=== PATIENT | female | born 1975 | race Caucasian/White ===

== ENCOUNTER 2020-02-02 20:40 | Emergency (ER) | payer SELFPAY ==
--- NOTE | ~2020-02-02 | CT_ITS ---
EXAMINATION: CT abdomen pelvis wo con DATE: 02/02/2020 21:35 INDICATION: Left lower quadrant abdominal pain TECHNIQUE: Computed tomography (CT) of the abdomen and pelvis was performed without intravenous contr ast. The dose-length product was 561.78 mGy-cm. Automated exposure control and iterative reconstructi on technique were employed. COMPARISON: None. FINDINGS: Lung bases are unremarkable. Heart size normal. No significant pleural or pericardial effus ion. Calcified granuloma in the spleen. There are gallstones. The liver, pancreas, adrenal glands and kidneys are unremarkable. Nonobstructive bowel gas pattern. Normal appendix. No evidence for diverti culitis. Mild atherosclerosis. No lymphadenopathy. No acute osseous abnormality. Mild-moderate lumbar spondylosis. IMPRESSION: 1. No acute abdominal abnormality. 2: Cholelithiasis. Reviewed, dictated and finalized at location A.
[2020-02-02 20:46] VITALS: BP 173/88; PULSE 79; RESP 17; TEMP 37.2; O2SAT 92
--- NOTE | 2020-02-02 21:01 | ED.ABDPAIN ---
HPI - Abdominal Pain General Chief Complaint: Abdominal Pain Stated Complaint: abd pain Time Seen by Provider: 02/02/20 21:01 Source: patient Mode of arrival: ambulatory Limitations: no limitations History of Present Illness HPI narrative: Pt presents to the ED with a three day history of worsening LLQ abd pain. Patient with 3-day history of worsening pain. Pain is intermittently sharp, cramping in nature. Patient also reports pain in the middle of her abdomen. She denies flank pain. No fever, chills, nausea, vomiting, chest pain or shortness of breath. No diarrhea. Patient states she was having some urinary retention last week but states that now improved. She denies dysuria or hematuria. Patient has a history of 4 sections in the past, denies other abdominal surgeries. Related Data Home Medications Medication Instructions Recorded Confirmed alprazolam 02/02/20 Allergies Allergy/AdvReac Type Severity Reaction Status Date / Time Penicillins Allergy Mild Hives Verified 02/02/20 20:46 Review of Systems Review of Systems: Narrative: CONSTITUTIONAL: Denies fever, chills, or sweats. CARDIOVASCULAR: Denies chest pain, palpitations, or edema. RESPIRATORY: Denies cough or dyspnea. GASTROINTESTINAL: Reports abdominal pain, denies nausea, vomiting or diarrhea GENITOURINARY: Denies dysuria or hematuria. SKIN: Denies rash or itching. MUSCULOSKELETAL: Denies back pain, joint pain, or myalgia. NEUROLOGIC: Denies headache, numbness, or weakness. [facility] Past Medical History Medical History (Updated 02/02/20 @ 22:52 by Lisa Bhandari MD) Anxiety COPD (chronic obstructive pulmonary disease) Surgical History Surgical History (Updated 02/02/20 @ 21:07 by Lisa Bhandari MD) H/O section Social History Social History (Updated 02/02/20 @ 21:08 by Lisa Bhandari MD) Smoking status: Current every day smoker Tobacco type: cigarettes Alcohol intake: never Substance use: never Living arrangements: with family Gender identity (if verbalized by the patient): Female Exam Narrative: Exam Narrative: GENERAL: Awake, alert, conversant HEAD: Normocephalic, atraumatic. EYES: PERRLA and EOMI. ENT: Nares clear, no rhinorrhea or epistaxis. Mucous membranes moist. NECK: Supple. CHEST: No respiratory distress, breathing even and non labored HEART: Regular rate, sinus rhythm ABDOMEN:Non distended, mild left lower quadrant tenderness, mild periumbilical tenderness, no suprapubic tenderness, no flank tenderness EXTREMITIES: Normal range of motion. No edema. SKIN: Warm, dry, no rash. NEURO:No focal deficits. Alert and oriented x3 Course Vital Signs Vital signs: Vital Signs Temperature 37.2 C 02/02/20 20:46 Pulse Rate 79 02/02/20 20:46 Respiratory Rate 17 02/02/20 20:46 Blood Pressure 173/88 H 02/02/20 20:46 Pulse Oximetry 92 02/02/20 20:46 Temperature 37.2 C 02/02/20 20:46 Pulse Rate 79 02/02/20 20:46 Respiratory Rate 17 02/02/20 20:46 Blood Pressure 173/88 H 02/02/20 20:46 Pulse Oximetry 92 02/02/20 20:46 MDM - Abdominal Pain MDM Narrative Medical decision making narrative: Patient's abdomen is soft without significant pain or signs of surgical abdomen on serial exams. Lab and imaging evaluations are reviewed and patient is felt to be a reasonable candidate for outpatient management. Patient has cholelithiasis without laboratory findings that are consistent for acute cholecystitis. Pt hemoconcentrated. She was given IV fluids, antiemetic and pain medicatoin with good improvement in symptoms. Furthermore, CT imaging does not show any evidence of acute cholecystitis. No UTI. Patient was instructed as to limitations of imaging and lab evaluation and encouraged to return to the emergency department her primary physician for repeat exam in 12 hours if continued or worsening pain. Differential Diagnosis Differential diagnosis: Likely abdominal pain, calcul
[2020-02-02 21:29] LABS: Basophils Percent Auto 0.3 % (0.2-1.2); Eosinophils Absolute Auto 0.2 K/mm3 (0-0.3); Eosinophils Percent Auto 1.5 % (0-4.4); Hematocrit 53.1 % (37.0-47.0); Hemoglobin 18.3 g/dL (12.0-15.0); Immature Granulocyte Absolute 0.04 K/mm3 (0.00-0.031); Immature Granulocyte Percent A 0.4 % (0-0.5); Lymphocytes Absolute Auto 3.94 K/mm3 (0.9-3.2); Lymphocytes Percent Auto 40.6 % (18.3-44.2); Mean Corpuscular HGB Conc 34.5 g/dl (32-36); Mean Corpuscular Hemoglobin 32.9 pg (26-34); Mean Corpuscular Volume 95.5 fl (80-100); Mean Platelet Volume 9.6 fl (7.4-10.4); Monocytes Absolute Auto 0.9 K/mm3 (0.1-0.6); Monocytes Percent Auto 8.8 % (2.6-8.5); Neutrophils Absolute Auto 4.7 K/mm3 (1.3-6.7); Neutrophils Percent Auto 48.4 % (45.5-73.1); Platelet Count Result 200 k/mm3 (150-375); Red Blood Count 5.56 M/mm3 (4.2-5.4); White Blood Count 9.7 K/mm3 (4.5-10.0)
[2020-02-02 21:33] LABS: Add Urine Microscopic? NO; Appearance Urine Clear (Clear); Bilirubin Urine Negative (Negative); Blood Urine Negative (Negative); Color Urine Yellow (Yellow); Glucose Urine UA Negative (Negative); Ketones Urine Negative (Negative); Leukocyte Esterase Ur Negative LEU/UL (Negative); Nitrate Urine Negative (Negative); Protein Urine Negative (Negative); Specific Grav Ur 1.011 (1.001-1.035); Urobilinogen Urine Negative mg/dL (<2.0)
[2020-02-02 22:41] LABS: Alanine Aminotransferase 18 U/L (4-35); Albumin Level 4.4 g/dL (3.5-5.1); Alkaline Phosphatase 64 U/L (38-126); Anion Gap 9.8 mmol/L (7-16); Aspartate Amino Transferase 24 U/L (14-36); Bilirubin,Total 0.6 mg/dL (0.2-1.3); Blood Urea Nitrogen 10 mg/dL (7-17); Calcium 9.2 mg/dL (8.4-10.2); Carbon Dioxide 30 mmol/L (22-30); Chloride 104 mmol/L (98-107); Estimated CRCL calculation 117 ml/min; Estimated Glomerular Filt Rate > 60; Glucose 97 mg/dL (65-105); Lipase 54 U/L (23-300); Potassium 3.8 mmol/L (3.4-5.0); Sodium 140 mmol/L (137-145)
[2020-02-02 22:53] VITALS: BP 121/77; PULSE 79; RESP 22; O2SAT 94
--- NOTE | 2020-02-02 22:56 | PC.NURSE ---
pt refused medication orders
== END 2020-02-02 23:00 | disposition home or self-care (01) ==
PROVIDERS: General Practice; Emergency Provider Emergency Medicine
DX: R10.32 Left lower quadrant pain (principal); F41.9 Anxiety disorder, unspecified; J44.9 Chronic obstructive pulmonary disease, unspecified; K80.20 Calculus of gallbladder without cholecystitis without obstruction; F17.210 Nicotine dependence, cigarettes, uncomplicated
CPT/HCPCS: 36415; 74176; 80053; 81003; 81025; 83690; 85025; 99284

== ENCOUNTER 2021-04-01 15:10 | Emergency (ER) | payer SELFPAY ==
[2021-04-01 15:28] VITALS: BP 117/78; PULSE 84; RESP 18; TEMP 36.6; O2SAT 97
--- NOTE | 2021-04-01 16:31 | ED.SKABFB ---
HPI - Skin/Abscess/Foreign Bdy General Chief complaint: Skin/Abscess/Foreign Body Stated complaint: Ijury on left arm Source: patient and RN notes reviewed Limitations: no limitations History of Present Illness HPI narrative: The patient, previously mostly healthy, presents with left arm skin eruption. Patient states she has about 5-day, week long history of pink, slightly itchy skin eruption that she thinks might be a bug bite . No fever, abscess/induration, streaking, prior/other rashes; there has been some discharge that she elicited/squeezed out.. Related Data Home Medications Medication Instructions Recorded Confirmed alprazolam 02/02/20 Allergies Allergy/AdvReac Type Severity Reaction Status Date / Time Penicillins Allergy Mild Hives Verified 02/02/20 20:46 Sulfa (Sulfonamide Allergy Other Verified 04/01/21 15:23 Antibiotics) Review of Systems Review of Systems: General/Constitutional: No weight loss,fever Gastrointestinal: No Vomiting, Bleeding-rectal Skin: No Lumps, eruption Neurologic: No Focal Weakness,Sz Hematologic: Denies: Petechiae/Purpura PMFSH Past Medical History Medical History (Updated 04/01/21 @ 16:32 by Sidney Hi MD) Anxiety COPD (chronic obstructive pulmonary disease) Surgical History Surgical History (Updated 02/02/20 @ 21:07 by Lisa Bhandari MD) H/O section Social History Social History (Updated 02/02/20 @ 21:08 by Lisa Bhandari MD) Smoking status: Current every day smoker Tobacco type: cigarettes Alcohol intake: never Substance use: never Gender identity (if verbalized by the patient): Female Comments At time of signature, agree with nursing past medical, surgical history. There is no relevant family history pertinent to the presenting complaint Exam Narrative: General Appearance: Well nourished Normocephalic Mouth/Throat: Normal appearing, Supple Respiratory: Airway patent, No respiratory distress Musculoskeletal: Moves all extremities, Non tender; Warm, Dry; smaller, quarter size skin eruption with central punctum on the left forearm Neurological: A&O x3, Normal affect Course Vital Signs Vital signs: Vital Signs Temperature 97.8 F 04/01/21 15:28 Pulse Rate 84 04/01/21 15:28 Respiratory Rate 18 04/01/21 15:28 Blood Pressure 117/78 04/01/21 15:28 Pulse Oximetry 97 04/01/21 15:28 Temperature 97.8 F 04/01/21 15:28 Pulse Rate 84 04/01/21 15:28 Respiratory Rate 18 04/01/21 15:28 Blood Pressure 117/78 04/01/21 15:28 Pulse Oximetry 97 04/01/21 15:28 Discharge Plan Discharge Clinical Impression: Folliculitis Patient Disposition: Home, Self-Care Condition: Improved Instructions: Folliculitis (ED) Additional Instructions: Stop clindamycin if diarrhea occurs; take clindamycin with food, probiotic and/or antacid Keep photo log of area Prescriptions: New clindamycin HCl 300 mg capsule 300 mg PO TID Qty: 15 RF: 0 mupirocin 2 % ointment 1 applic TOPICAL TID Qty: 30 RF: 0 No Action alprazolam 0.25 mg tablet RF: 0 ondansetron HCl [Zofran] 4 mg tablet 4 mg PO Q8H Qty: 14 RF: 0 dicyclomine 10 mg capsule 10 mg PO BID 5 Days Qty: 10 RF: 0 Follow-up/Referrals: PHYSICIAN NOT ON STAFF,NONSTAFF [Primary Care Provider] - Jason Morgan MD [Physician] -
== END 2021-04-01 16:45 | disposition home or self-care (01) ==
PROVIDERS: Emergency Provider Emergency Medicine
DX: L73.9 Follicular disorder, unspecified (principal); J44.9 Chronic obstructive pulmonary disease, unspecified
CPT/HCPCS: 99213; G0463

== ENCOUNTER → 2022-08-25 16:20 | Outpatient (CLI) | payer MEDICAID, SELFPAY ==
--- NOTE | ~2022-08-25 | XR_ITS ---
EXAMINATION: XR chest 2V DATE: 08/25/2022 16:34 INDICATION: Cough. TECHNIQUE: Frontal and lateral views of the chest were obtained. COMPARISON: Chest 2 views 12/04/2007, CT abdomen and pelvis 02/02/2020 FINDINGS: The lungs are hyperexpanded, consistent with emphysema. There is mild atelectasis at right lung base. No pleural effusion or pneumothorax. The heart size is normal. Main pulmonary artery is en larged, consistent with pulmonary arterial hypertension. IMPRESSION: 1. Emphysema. 2. Mild atelectasis at right lung base. Reviewed, dictated and finalized at location A. WRITER
== END ==
PROVIDERS: PCP Family Medicine; Visit Provider Family Medicine
DX: R05.9 Cough, unspecified (principal); J43.9 Emphysema, unspecified; J98.11 Atelectasis
CPT/HCPCS: 71046

== ENCOUNTER 2023-04-01 19:34 | Emergency (ER) | payer OTHER, SELFPAY ==
[2023-04-01 19:46] VITALS: BP 165/88; PULSE 124; RESP 30; TEMP 37.2; O2SAT 75
== END 2023-04-01 19:46 | disposition left against medical advice (07) ==
LOC: EXPCOLL 19:36
PROVIDERS: Emergency Provider Nurse Practitioner Family; PCP Internal Medicine
DX: R05.9 Cough, unspecified (principal)
CPT/HCPCS: 99199

== ENCOUNTER 2023-06-25 18:07 | Emergency (ER) | payer OTHER, SELFPAY ==
[2023-06-25 18:11] VITALS: BP 161/87; PULSE 93; RESP 16; TEMP 37; O2SAT 93
--- NOTE | 2023-06-25 18:39 | ED.FEMALEGU ---
HPI - Female Genitourinary General Chief complaint: Urogenital-Female Stated complaint: urinary issue Time Seen by Provider: 06/25/23 18:39 Source: patient, RN notes reviewed and old records reviewed Mode of arrival: ambulatory Limitations: no limitations History of Present Illness HPI Narrative: 48-year-old female presents to the [facility] with complaints of trouble emptying bladder, frequency, urgency, low back pain that started yesterday. Denies abdominal pain, upper back pain, fevers History of UTIs, states it feels the same Onset (ago): day(s) (1) Related Data Home Medications Medication Instructions Recorded Confirmed ergocalciferol (vitamin D2) 1,250 1,250 mcg PO DAILY 04/01/23 06/25/23 mcg (50,000 unit) capsule Allergies Allergy/AdvReac Type Severity Reaction Status Date / Time Penicillins Allergy Mild Hives Verified 06/25/23 18:15 Sulfa (Sulfonamide Allergy Unknown Other Verified 06/25/23 18:15 Antibiotics) Quinolones AdvReac Mild Hives Verified 06/25/23 18:15 Review of Systems Review of Systems: All systems reviewed & are unremarkable except as noted in HPI and below Constitutional: Constitutional: Reports no additional constitutional complaints Eyes: Eyes: Reports no additional eye complaints ENT: Reports system reviewed and no additional complaints, except as documented Cardiovascular: Cardiovascular: Reports no additional cardiovascular complaints, Denies chest pain and Denies dyspnea Respiratory: Respiratory: Reports no additional respiratory complaints, Denies chest congestion, Denies cough and Denies dyspnea Gastrointestinal: Gastrointestinal: Reports no additional gastrointestinal complaints, Denies abdominal pain, Denies nausea and Denies vomiting Genitourinary: Genitourinary: Reports as per HPI Musculoskeletal: Musculoskeletal: Reports no additional musculoskeletal complaints Integumentary/Breasts: Skin/Breast: Reports system reviewed and no additional complaints, except as docu Neurologic: Reports system reviewed and no additional complaints, except as documented Psychiatric: Psychiatric: Reports no additional psychiatric complaints Allergic/Immunologic: Allergic/Immunologic: Reports no additional allergic/immunologic complaints PMFSH Past Medical History Medical History ADHD Anxiety Arthritis COPD (chronic obstructive pulmonary disease) Surgical History Surgical History H/O section Family History Family History Father Lupus (systemic lupus erythematosus) Social History Social History Smoking status: Current every day smoker Tobacco type: cigarettes Alcohol intake: never Substance use: never Lack of Transportation: No Lack of Food: Never True Current Housing: I Have Housing Concerned About Future Housing: No Difficulty Paying Gas/Electric Bills: No Difficulty Paying for Meds: No Currently Unemployed: YES Education: Grade School Difficulty w/ Childcare or Family Care: No Living arrangements: with family Gender identity (if verbalized by the patient): Female Comments At the time of my signature, I reviewed and agree with the nursing past medical, surgical, social, and family history. There is no relevant family history pertinent to the patient complaint. Exam Const: General: cooperative, healthy appearing, comfortable, no acute distress, well developed, alert, well nourished and other (Older than stated age) Nutritional Appearance: well nourished Orientation/consciousness: patient oriented x3 Limitations: no limitations HENMT: Head: normal to inspection Ears: hearing grossly normal bilaterally and external ears normal Face/Nose/Sinus: Normal external nose present, Normal nares present, Normal nasal muco
== END 2023-06-25 18:54 | disposition home or self-care (01) ==
PROVIDERS: Emergency Provider Nurse Practitioner; PCP Internal Medicine
DX: N39.0 Urinary tract infection, site not specified (principal); F17.210 Nicotine dependence, cigarettes, uncomplicated
CPT/HCPCS: 81003; 87086; 99213; G0463